=== PATIENT | male | born 1955 | race Caucasian/White ===

== ENCOUNTER 2017-06-18 12:49 | Emergency (ER) | payer OTHER, MEDICARE ==
[2017-06-18] MEDS ORDERED: DIPH/PERTUSS(ACELL)/TETANUS VAC/PF 0.5 ML SYR (>=10YO) IM ONE (13:31)
--- NOTE | 2017-06-18 13:32 | ER Document Report ---
HPI - HPI Patient complains to provider of: Right hand injury Onset: Yesterday Onset/Duration: Sudden Quality of pain: Achy Pain Level: 2 Context: Patient states that he was using a drill gun and accidentally slipped puncturing his right hand. Patient is right-hand dominant. Patient denies any fever. Patient was not wearing gloves at the time of the injury. Patient states that every time he moves his hand it starts to bleed which prompted him to come in today. Associated Symptoms: Other - Right hand puncture wound Exacerbated by: Movement Relieved by: Denies Similar symptoms previously: No Recently seen / treated by doctor: No - ROS ROS below otherwise negative: Yes Systems Reviewed and Negative: Yes All other systems reviewed and negative - CONSTITUTIONAL Constitutional: DENIES: Fever - NEURO Neurology: DENIES: Weakness - CARDIOVASCULAR Cardiovascular: DENIES: Chest pain - MUSCULOSKELETAL Musculoskeletal: REPORTS: Extremity pain - DERM Skin Color: Normal Skin Problems: Laceration, Puncture Wound Past Medical History - General Information source: Patient - Social History Smoking Status: Current Every Day Smoker Chew tobacco use (# tins/day): No Frequency of alcohol use: None Drug Abuse: None Occupation: [employer] Family History: Reviewed & Not Pertinent - Past Medical History Cardiac Medical History: Reports: Hx Hypercholesterolemia, Hx Hypertension Endocrine Medical History: Reports: Hx Diabetes Mellitus Type 2 Renal/ Medical History: Denies: Hx Peritoneal Dialysis GI Medical History: Reports: Hx Gastroesophageal Reflux Disease Psychiatric Medical History: Reports: Hx Depression Past Surgical History: Reports: Hx Orthopedic Surgery - L4-L5/SPINAL CORD STIMULATOR - Immunizations Hx Diphtheria, Pertussis, Tetanus Vaccination: Yes Vertical Provider Document - CONSTITUTIONAL Agree With Documented VS: Yes Exam Limitations: No Limitations General Appearance: WD/WN, No Apparent Distress - INFECTION CONTROL TRAVEL OUTSIDE OF THE [place] IN LAST 30 DAYS: No - HEENT HEENT: Atraumatic, Normocephalic - NECK Neck: Normal Inspection - RESPIRATORY Respiratory: No Respiratory Distress O2 Sat by Pulse Oximetry: 96 - CARDIOVASCULAR Pulses: Normal: Radial - MUSCULOSKELETAL/EXTREMETIES Musculoskeletal/Extremeties: MAEW, FROM, No Edema - NEURO Level of Consciousness: Awake, Alert, Appropriate Motor/Sensory: No Motor Deficit, No Sensory Deficit - DERM Integumentary: Warm, Dry, Laceration - Irregular 1 cm laceration to the medial aspect of base of right second finger. No active bleeding, no tendon deficit Course - Vital Signs Vital signs: Temp Pulse Resp BP Pulse Ox 98.6 F 81 20 134/76 H 96 06/18/17 12:53 06/18/17 12:53 06/18/17 12:53 06/18/17 12:53 06/18/17 12:53 - Diagnostic Test Radiology reviewed: Reports reviewed Discharge - Discharge Clinical Impression: Puncture wound, hand Qualifiers: Encounter type: initial encounter Foreign body presence: without foreign body Laterality: right Qualified Code(s): S61.431A - Puncture wound without foreign body of right hand, initial encounter Condition: Stable Disposition: HOME, SELF-CARE Instructions: Cephalexin ([facility]), Puncture Wound ([facility]), Care of Steri-Strip Closure ([facility]) Additional Instructions: Return immediately for any new or worsening symptoms Followup with your primary care provider, call tomorrow to make a followup appointment Follow up with hand specialist for any continued pain or problems Prescriptions: Cephalexin Monohydrate [Keflex 500 mg Capsule] 500 mg PO Q6H 5 Days capsule Forms: Return to Work Referrals: STELLA BEDOLLA DO [ACTIVE STAFF] - Follow up as needed
--- NOTE | 2017-06-18 14:11 | RADIOLOGY REPORT (SQ) ---
EXAM DESCRIPTION: HAND RIGHT 3 VIEWS COMPLETED DATE/TIME: 06/18/2017 2:00 pm REASON FOR STUDY: PW base of r 2nd finger COMPARISON: None. EXAM PARAMETERS: NUMBER OF VIEWS: Three views. TECHNIQUE: AP, lateral and oblique radiographic images acquired of the right hand. LIMITATIONS: None. FINDINGS: MINERALIZATION: Normal. BONES: No acute fracture or dislocation. No worrisome bone lesions. JOINTS: Mild osteoarthritis with joint space narrowing and bony spurring at the 2nd 3rd 4th and 5th D IP joints. SOFT TISSUES: No soft tissue swelling. No foreign body. OTHER: No other significant finding. IMPRESSION: No retained radiopaque foreign body given a history of puncture wound TECHNICAL DOCUMENTATION: JOB ID: [id number] [employer]- All Rights Reserved
[2017-06-18 14:37] VITALS: BP 126/72
== END 2017-06-18 14:38 | disposition home or self-care (01) ==
LOC: ER 12:49
DX: S61.431A Puncture wound without foreign body of right hand, initial encounter (principal); W29.8XXA Contact with other powered hand tools and household machinery, initial encounter; F17.200 Nicotine dependence, unspecified, uncomplicated
CPT/HCPCS: 90471; 90715; 99283